=== PATIENT | female | born 1995 | race Hispanic/Latino ===

== ENCOUNTER 2016-07-19 21:50 | Emergency (ER) | payer OTHER ==
[~2016-07-19] VITALS: Ht 149.9 cm; Wt 72.6 kg
[2016-07-19 21:51] VITALS: BP 139/66
[2016-07-19] MEDS ORDERED: BCP PO (22:02)
[2016-07-19] MEDS ORDERED: NAPROXEN 250 MG TAB PO ONE (22:45)
[2016-07-19] MEDS ORDERED: CIPROFLOXACIN HC OTIC SUSPENSION AD ONE (22:45)
[2016-07-19] MEDS ORDERED: CIPR0.3S AD (23:02)
== END 2016-07-19 23:15 | disposition home or self-care (01) ==
LOC: M ED 22:56
DX: H60.311 Diffuse otitis externa, right ear (principal); J06.9 Acute upper respiratory infection, unspecified